=== PATIENT | female | born 1960 | race Caucasian/White ===

== ENCOUNTER → 2019-10-23 | Outpatient (CLI) | payer OTHER ==
[~2019-10-23] MED LIST: CIPRO500 MG PO; COLCHICINE 0.60.6 M1 PO; DOXYCYCLINE 10100 MG PO; ESTRADIOL 1 MG T1 M1 PO; FLAGYL500 MG PO; INDOMETHACIN 2525 MG PO; NORCO 5-325 TA1 EACH PO; NORTRIPTYLINE H25 M3 PO; PHENERGAN 25 MG25 M1 PO; PREDNISONE 10 M10 M1 PO; PRINZIDE 20-121 EACH PO; PROMETHAZINE12.5 M1 PO; TRICOR; ZESTRIL20 MG PO
== END ==
LOC: M.RAD 10:28
PROVIDERS: ATTEND Internal Medicine
DX: M17.0 Bilateral primary osteoarthritis of knee (principal); G89.29 Other chronic pain; M25.761 Osteophyte, right knee; M25.762 Osteophyte, left knee

== ENCOUNTER → 2020-02-26 | Outpatient (CLI) | payer OTHER ==
[2020-02-26 11:44] LABS: ABSOLUTE EOSINOPHILS 0.1 thou/uL (0.0-0.7); ABSOLUTE MONOCYTES 0.3 thou/uL (0.0-1.2); ABSOLUTE NEUTROPHILS 3.3 thou/uL (1.6-8.1); BASOPHILS 0.9 %; EOSINOPHILS 2.9 %; LYMPHOCYTES 20.5 %; MCH 29.2 pg (26.0-34.0); MCV 85.8 fL (80.0-100.0); MPV 8.1 fl. (7.2-11.1); NUCLEATED RBCS 0 /100WBC; PLATELET COUNT* 181 thou/uL (150-400); POLYS 68.7 %; RBC 5.13 mil/uL (4.20-5.00); RDW-CV 14.3 % (10.5-14.5); WBC 4.7 thou/uL (4.0-11.0)
[2020-02-26 11:57] LABS: ALBUMIN 3.7 g/dL (3.4-5.0); CALCIUM 9.4 mg/dL (8.5-10.1); POTASSIUM 3.2 mmol/L (3.5-5.1); TOTAL BILIRUBIN 0.7 mg/dL (<0.1-1.0); TOTAL PROTEIN 7.8 g/dL (6.4-8.2)
== END ==
LOC: M.LAB 11:13
PROVIDERS: ATTEND Internal Medicine
DX: R10.32 Left lower quadrant pain (principal)

== ENCOUNTER → 2020-02-27 | Outpatient (CLI) | payer OTHER | LOC: M.CT 12:09 | PROVIDERS: ATTEND Internal Medicine | DX: K57.33 Diverticulitis of large intestine without perforation or abscess with bleeding (principal); L92.8 Other granulomatous disorders of the skin and subcutaneous tissue; Z90.710 Acquired absence of both cervix and uterus ==

== ENCOUNTER → 2020-04-16 | Outpatient (CLI) | payer OTHER ==
--- NOTE | 2020-04-16 15:39 | EXE ---
[place] [address] STRESS ECHOCARDIOGRAM Name: MILI MCNEILL Room: [facility]#: [id number] Admission: 04/16/20 Attend Phys: Gurinder Polo Discharge: Date of : 60 Date of Service: 04/16/20 1538 Report #: [id number] THIS REPORT FOR: cc: Gurinder Polo Meng,Sebastian Barrera MD [facility] ~ ADDENDUM APPROVED REPORT Study performed: 04/16/2020 11:40:52 Exam: Dobutamine Stress Echo Indication: Chest pain Patient Location: Out-Patient Stress Nurse: Mis Frederick RN Supervising Physician: Sebastian Babcock MD Ht: 5 ft 2 in HR: 73 bpm BP: 134/93 mmHg Medical History Cardiac Risk Factors: Age,, HTN, DM Procedure The patient underwent a Pharmacological Stress Test using . Blood pressure, heart rate, and EKG were monitored. An Echocardiogram was performed by special effects technician in four stages in quad fashion. At peak stress, four selected images were obtained and placed side by side with resting images for comparison. Echo Enhancing Agent Indication: Endocardial border delineation Agent(s) / Amount(s) Used: Optison 10 cc Stress Test Details Stress Test: Pharmacological Stress Test using Dobutamine. Reason for pharmacologic stress test: physical limitation. HR Resting HR: 73 bpm Max Heart Rate (APMHR): 161 bpm Max HR Achieved: 135 bpm Target HR (85% APMHR): 136 bpm % of APMHR: 83 Recovery HR: 86 bpm HR response to stress: [place] [address] STRESS ECHOCARDIOGRAM Name: CHARITOMILI Joaquín Room: [facility]#: [id number] Admission: 04/16/20 Attend Phys: Gurinder Polo Discharge: Date of : 60 Date of Service: 04/16/20 1538 Report #: [id number] Resting BP: 134/93 mmHg Max BP: 168/74 mmHg Recovery BP: 167/70 mmHg BP response to stress: Normal blood pressure response to stress. ECG Resting ECG: Sinus Rhythm Stress ECG: Sinus Tachycardia ST Change: Normal Maximum ST Deviation: 0 mm Arrhythmia: VPC's Recovery ECG: Sinus Rhythm Recovery ST Change: Normal Recovery ST Deviation: 0 mm Recovery Arrhythmia: None Clinical Reason for Termination: Completed protocol Pre-Stress Echo The resting Echocardiogram showed normal left ventricular contractility with an estimated Ejection Fraction of about 55-60%. Post-Stress Echo The stress Echocardiogram showed normal left ventricular contractility with an estimated Ejection Fraction of about 65-70%. Compared to rest, there were no stress-induced wall motion abnormalities. Conclusion Clinical Response: Non-ischemic Stress ECG Response: Non-ischemic Stress Echo Images: Non-ischemic low risk dobutamine stress echo for predicting future cardiac events although the echo images were suboptimal. Other Information Study Quality: Technically Difficult <Conclusion> [place] [address] STRESS ECHOCARDIOGRAM Name: MILI MCNEILL Room: [facility]#: [id number] Admission: 04/16/20 Attend Phys: Gurinder Polo Discharge: Date of : 60 Date of Service: 04/16/20 1538 Report #: [id number] low risk dobutamine stress echo for predicting future cardiac events although the echo images were suboptimal. <ELECTRONICALLY SIGNED> By: Sebastian Babcock MD, JORGE 04/16/20 1538 1538 1538 Sebastian Babcock MD, FACCarlito /INF
== END ==
LOC: M.ULTRA 09:42 → M.CRD 11:00
PROVIDERS: ATTEND Internal Medicine
DX: R07.9 Chest pain, unspecified (principal); R42 Dizziness and giddiness